=== PATIENT | female | born 1975 | race Caucasian/White ===

== ENCOUNTER 2017-12-31 15:23 | Outpatient (CLI) | payer BC | END 2017-12-31 15:24 | disposition home or self-care (01) | LOC: BICMAMMO 15:23 | PROVIDERS: ATTEND Physician Assistant | DX: Z12.31 Encounter for screening mammogram for malignant neoplasm of breast (principal); N64.89 Other specified disorders of breast | CPT/HCPCS: 77063; 77067 ==

== ENCOUNTER 2018-01-12 14:27 | Outpatient (CLI) | payer BC | END 2018-01-12 14:28 | disposition home or self-care (01) | LOC: BICMAMMO 14:27 | PROVIDERS: ATTEND Physician Assistant | DX: R92.2 Inconclusive mammogram (principal) | CPT/HCPCS: G0279 ==

== ENCOUNTER 2018-07-07 07:55 | Outpatient (CLI) | payer BC ==
[2018-07-07 08:45] LABS: #Basophils 0.1 thou/uL (0.0-0.2); #Eosinphils 0.2 thou/uL (0.0-0.7); #Lymphocytes 1.8 thou/uL (1.20-3.40); #Monocytes 0.5 thou/uL (0.11-0.59); #Neutrophils 3.9 thou/uL (1.40-6.50); %Eosinophils 3.6 % (0.0-10.0); %Lymphocytes 28.1 % (21.0-51.0); %Monocytes 8.2 % (0.0-10.0); %Neutrophils 59.2 % (42.0-75.0); Hemoglobin 13.1 g/dL (12.0-16.0); Mean Corpuscular Hemoglobin 28.8 pg (27.0-31.0); Mean Corpuscular Volume 87.3 fL (78.0-98.0); Mean Platelet Volume 7.3 fL (7.4-10.4); Platelet Count 309 thou/uL (130-400); RBC Distribution Width 12.6 % (11.5-14.5); Red Blood Cell (RBC) Count 4.56 mill/uL (4.20-5.40); White Blood Cell (WBC) Count 6.5 thou/uL (4.8-10.8)
[2018-07-07 09:00] LABS: ALT (SGPT) 15 U/L (8-55); AST (SGOT) 12 U/L (5-34); Albumin 4.1 g/dL (3.5-5.0); Alkaline Phosphatase 74 U/L (40-150); Anion Gap 11 mmol/L (10-20); BUN (Urea Nitrogen) 10 mg/dL (7.0-18.7); Bilirubin, Total 0.3 mg/dL (0.2-1.2); Calc. Creatinine Clearance 0 mL/min (70-130); Calcium 9.7 mg/dL (7.8-10.44); Carbon Dioxide 28 mmol/L (22-29); Cardiac Risk 3.6 (Less than 4.5); Chloride 106 mmol/L (98-107); Cholesterol 214 mg/dl (< 200 Desired); Estimated GFR-MDRD 88; Glucose 97 mg/dL (70-105); HDL Cholesterol 60 mg/dL (>60 Neg Risk); LDL Cholesterol, Calculated 123 mg/dL; Potassium 3.8 mmol/L (3.5-5.1); Protein, Total 7.1 g/dL (6.0-8.3); Sodium 141 mmol/L (136-145); Triglycerides 154 mg/dL (Less than 150)
--- NOTE | 2018-07-07 09:03 | ULT ---
ULTRASOUND ABDOMEN: HISTORY: Abdominal bulge, abdominal swelling. FINDINGS: There is a 1.4 x 1.7 cm echogenic lesion in the liver, likely hemangioma. No gallstones, gallbladder wall thickening, or pericholecystic fluid is seen. The common duct measures 3 mm in diameter. The kidneys, spleen, pancreas, and visualized portions of the aorta and IVC are normal. No free fluid is seen. At the site of the bulge in the abdominal wall, the wall appears thinner than superior to it. No def inite hernia is seen. IMPRESSION: 1. Probable liver hemangioma. Confirmation with Technetium 99m labelled RBC scan is recommended. 2. No evidence of cholelithiasis. 3. Recommend CT scan of the abdomen to evaluate for abdominal wall hernia. POS: [facility]
[2018-07-07 09:20] LABS: Thyroid Stimulating Hormone 0.5606 uIU/mL (0.35-4.94)
[2018-07-07 10:28] LABS: Vitamin D, 25 Hydroxy 35.7 ng/ml (> 30.0)
== END 2018-07-07 07:56 | disposition home or self-care (01) ==
LOC: SCSULT 07:55
PROVIDERS: ATTEND Physician Assistant
DX: Z00.00 Encounter for general adult medical examination without abnormal findings (principal); R19.00 Intra-abdominal and pelvic swelling, mass and lump, unspecified site
CPT/HCPCS: 36415; 76700; 80053; 80061; 82306; 84443; 85025

== ENCOUNTER 2018-07-20 08:08 | Outpatient (CLI) | payer BC ==
[2018-07-20] MEDS ORDERED: Iopamidol 370 76% 100 ML VIAL ONE (09:00)
--- NOTE | 2018-07-20 10:19 | CT ---
CT ABDOMEN AND PELVIS WITH AND WITHOUT CONTRAST: Multiple axial tomograms were obtained through the abdomen and pelvis pre- and post-IV contrast admin istration. The post contrast images were obtained in arterial phase, portal venous phase, and delayed venous pha se following hemangioma protocol. INDICATION: Liver hemangioma. Exam is followup to abdominal ultrasound exam of 07/07/2018 which revealed an echog enic lesion in the liver. Lung bases clear. Review of the liver reveals a low-density lesion in the mid left lobe near the falciform ligament. T his measures approximately 1.5 cm. The precontrast density is recorded at 6 Hounsfield units and pos tcontrast density is recorded at 4 Hounsfield units indicating a benign cyst. There is no enhancemen t related to this lesion. No evidence of hepatic hemangioma identified. No other hepatic lesion identified. There is mild fat ty sparing near the gallbladder fossa. The spleen and pancreas are unremarkable. Adrenal glands appear normal. Kidneys are unremarkable. Urinary bladder unremarkable. Small bowel loops appear normal. Appendix is normal. Colon unremarkable. Aorta normal caliber. No adenopathy. Images through the pelvis show unremarkable uterus and adnexa. Review of the abdominal wall reveals a localized fat density seen within the rectus fascia just to th e right of midline at the level of the umbilicus measuring 1.5 cm. This may represent small intramus cular lipoma. In addition, there is a circumscribed area of fat density surrounding the umbilicus me asuring up to 4 cm width in the axial plane. This may also represent a lipoma, although I cannot com pletely exclude a small umbilical hernia sac containing mesenteric fat. However, I do not confirm an anterior abdominal wall defect and, therefore, favor a localized lipoma rather than hernia with mese nteric fat. IMPRESSION: 1. A low-density lesion in the mid left lobe of the liver is seen. CT characteristics suggest a hep atic cyst. No evidence of hepatic hemangioma identified by CT. The hyperechoic lesion on ultrasound is, therefore, not definitely identified. Suggest followup right upper quadrant ultrasound in 6 mon ths to reevaluate the hyperechoic lesion seen on ultrasound. 2. Localized fat density in the anterior abdominal wall in the rectus fascia in the midline suggesti ng small lipoma. There is also circumscribed fat density surrounding the umbilicus which may also re present localized lipoma as described above. Umbilical hernia is a consideration but not confirmed a s I do not identify an anterior abdominal wall defect. 3. CT abdomen and pelvis otherwise unremarkable. POS: [facility]
== END 2018-07-20 08:09 | disposition home or self-care (01) ==
LOC: SCSCT 08:08
PROVIDERS: ATTEND Physician Assistant
DX: D18.03 Hemangioma of intra-abdominal structures (principal); R19.00 Intra-abdominal and pelvic swelling, mass and lump, unspecified site
CPT/HCPCS: 74178; Q9967

== ENCOUNTER 2019-09-08 06:57 | Outpatient (CLI) | payer BC ==
--- NOTE | 2019-09-08 07:52 | MMO ---
Bilateral MAMMO Bilat Screen [facility]. CLINICAL HISTORY: Patient is 44 years old and is seen for screening. The patient has the following family history of breast cancer: mother, at age 69, AND COLON. The patient has no personal history of cancer. The patient has a history of bilateral mastopexy in February,. VIEWS: The views performed were: bilateral craniocaudal with tomosynthesis; bilateral mediolateral oblique with tomosynthesis; and bilateral exaggerated craniocaudal. FILMS COMPARED: The present examination has been compared to prior imaging studies performed at [facility] on 10/11/2015, 10/13/2016, 12/31/2017 and 01/12/2018. This study has been interpreted with the assistance of computer-aided detection. MAMMOGRAM FINDINGS: There are scattered fibroglandular densities. There are no suspicious masses, suspicious calcifications, or new areas of architectural distortion. IMPRESSION: THERE IS NO MAMMOGRAPHIC EVIDENCE OF MALIGNANCY. A ROUTINE FOLLOW-UP MAMMOGRAM IN 1 YEAR IS RECOMMENDED. THE RESULTS OF THIS EXAM WERE SENT TO THE PATIENT. ACR BI-RADS Category 1 - Negative MAMMOGRAPHY NOTE: 1. A negative mammogram report should not delay a biopsy if a dominant of clinically suspicious mass is present. 2. Approximately 10% to 15% of breast cancers are not detected by mammography. 3. Adenosis and dense breasts may obscure an underlying neoplasm. Reported by: ISHA ESCALANTE MD Electonically Signed: [id number]
--- NOTE | 2019-09-08 09:49 | ULT ---
GALLBLADDER ULTRASOUND: HISTORY: Followup from prior imaging. Liver cyst. COMPARISON: Ultrasound of 07/07/2018. CORRELATION: CT scan of abdomen and pelvis dated 07/20/2018. FINDINGS: The focal area of hyperechogenicity adjacent to the falciform ligament measuring 1.5 x 1.4 x 1.5 cm i s again seen as on the previous ultrasound. However, the CT scan demonstrated a cyst in this region. The gallbladder demonstrates no gallstones, gallbladder wall thickening, or pericholecystic fluid. T he visualized portions of the pancreas are normal. There is a 2.2 cm cyst in the right kidney. No r ight-sided hydronephrosis is seen. No free fluid is noted in the Morison's pouch. IMPRESSION: 1. Stable hyperechoic lesion in the liver. 2. Right renal cyst. POS: [facility]
== END 2019-09-08 06:58 | disposition home or self-care (01) ==
LOC: BICULT 06:57
PROVIDERS: ATTEND Physician Assistant
DX: Z12.31 Encounter for screening mammogram for malignant neoplasm of breast (principal); K76.89 Other specified diseases of liver; Z80.3 Family history of malignant neoplasm of breast; Z80.0 Family history of malignant neoplasm of digestive organs; N28.1 Cyst of kidney, acquired
CPT/HCPCS: 76705; 77063; 77067

== ENCOUNTER 2019-10-13 13:58 | Outpatient (CLI) | payer BC ==
--- NOTE | 2019-10-13 15:38 | ULT ---
RENAL ULTRASOUND: INDICATION: History of right flank pain. COMPARISON: Prior CT of the abdomen and pelvis dated July 20, 2018. FINDINGS: The right kidney measures 13.5 x 5.9 x 6.3 cm. The left kidney measured 11.3 x 5.1 x 5.1 cm. No foc al renal lesion or hydronephrosis is evident. The bladder has a prevoid bladder volume of 204.4 cc. IMPRESSION: No focal renal lesion or hydronephrosis. POS: [facility]
== END 2019-10-13 13:59 | disposition home or self-care (01) ==
LOC: SCSULT 13:58
PROVIDERS: ATTEND Physician Assistant
DX: R10.9 Unspecified abdominal pain (principal)
CPT/HCPCS: 76770

== ENCOUNTER 2021-11-06 08:20 | Outpatient (CLI) | payer BC | END 2021-11-06 08:21 | disposition home or self-care (01) | LOC: BICULT 08:20 | PROVIDERS: ATTEND Physician Assistant | DX: Z12.31 Encounter for screening mammogram for malignant neoplasm of breast (principal); K76.89 Other specified diseases of liver; N28.1 Cyst of kidney, acquired; D18.03 Hemangioma of intra-abdominal structures; Z98.890 Other specified postprocedural states | CPT/HCPCS: 76705; 77063; 77067 ==